=== PATIENT | female | born 1960 | race Hispanic/Latino ===

== ENCOUNTER 2018-02-11 11:35 | Emergency (ER) | payer BC, SELFPAY ==
--- NOTE | 2018-02-11 16:26 | CT ---
CT BRAIN WITHOUT CONTRAST: Date: 02-11-[address] of the brain was performed following trauma. FINDINGS: The ventricles are normal in size with no shift. No intracranial bleeding or extraaxial hematoma was seen. There is no sign of mass, edema, or stroke. The skull shows no fracture. The sphenoid sinus and mastoid air cells are clear. IMPRESSION: No acute intracranial findings. POS: HOME
--- NOTE | 2018-02-11 16:37 | CT ---
CT LUMBAR SPINE: Date: 02-11-18 FINDINGS: There is some minor diffuse bulging of the L5-S1 disc and about 1 mm of anterolisthesis of L5 on S1 d ue to facet arthritis change. No focal disc herniations were seen at any level. There were no signs o f foraminal or central canal stenosis at any level. The T12 and L3 vertebra have lucency in the verte bral body, typical of hemangiomas. IMPRESSION: 1. No acute traumatic findings. 2. Moderately severe degenerative changes in the facet joints at L5-S1. POS: HOME
== END 2018-02-11 13:01 | disposition home or self-care (01) ==
LOC: BURERS 11:35
DX: S33.5XXA Sprain of ligaments of lumbar spine, initial encounter (principal); S00.03XA Contusion of scalp, initial encounter; W22.8XXA Striking against or struck by other objects, initial encounter
CPT/HCPCS: 70450; 72131